=== PATIENT | male | born 1955 | race Hispanic/Latino ===

== ENCOUNTER 2017-09-17 19:34 | Emergency (ER) | payer MEDICAID ==
[2017-09-17] MEDS ORDERED: Sodium Chloride 0.9% 1,000 ML IV ONE ×2 (20:04→21:39)
--- NOTE | 2017-09-17 20:11 | C.PDOC ---
History Of Present Illness 62 year old male, whose PMHx includes Diabetes, presents to the ED for evaluation after sustaining a fall earlier today. Patient admits to taking Xanax earlier today. pt states he "took xanax". reports mild cough. pt oriente x 3, mildly somulent. - HPI Time Seen by Provider: 09/17/17 19:58 Chief Complaint (Nursing): Trauma History Per: Patient History/Exam Limitations: clinical condition Onset/Duration Of Symptoms: Hrs Injury Occurred (Timing): Just Before Arrival Additional History Per: Patient Past Medical History Reviewed: Historical Data, Nursing Documentation, Vital Signs Vital Signs: Last Vital Signs Temp 99.5 F 09/17/17 20:47 Pulse 68 09/17/17 21:45 Resp 14 09/17/17 21:45 BP 85/46 L 09/17/17 21:45 Pulse Ox 95 09/18/17 00:01 - Medical History PMH: No Chronic Diseases Surgical History: No Surg Hx Family History: States: Unknown Family Hx - Social History Hx Alcohol Use: Yes Hx Substance Use: Yes Review Of Systems Review Of Systems: ROS cannot be obtained secondary to pt's inabilty to answer questions. Physical Exam - Physical Exam Appears: Non-toxic, No Acute Distress, Other (mildly somnolent ) Skin: Normal Color, Warm, Dry Head: Atraumatic, Normacephalic Eye(s): bilateral: Normal Inspection Oral Mucosa: Moist Neck: Normal ROM, Supple Chest: Symmetrical, No Deformity, No Tenderness Cardiovascular: Rhythm Regular, No Murmur Respiratory: Normal Breath Sounds, No Rales, No Rhonchi, No Wheezing Extremity: Normal ROM, Capillary Refill (less than 2 seconds ) Neurological/Psych: Oriented x3, Normal Speech, Normal Cognition ED Course And Treatment - Laboratory Results Result Diagrams: 09/17/17 20:15 09/17/17 20:15 ECG: Interpreted By Me, Viewed By Me ECG Rhythm: Sinus Rhythm Interpretation Of ECG: Normal Sinus Rhythm at rate 82bpm. No ST/T wave changes. Rate From EC O2 Sat by Pulse Oximetry: 95 (on RA) Pulse Ox Interpretation: Normal Medical Decision Making Medical Decision Making: suspect overdose. however b/p mildly low- ivf intiiated. possible toxidrome vs sepsis. Progress: Bloodwork, urinalysis, CXR, CT Head, EKG ordered and reviewed. IV Fluids administered. no la, mild luekocytosis. cxr likely atelecatsisi, but with cough, leukoctyosis , antibiotics intiaited. b/p improved. pt now awake alert oriented. labs otheriwes urnemarkble. pt requesting immediately dc. adivsed pt that b/p is still low. pt refuses further eval, requesting immediately dc. signs AMA Disposition - Disposition Referrals: [facility] [Outside] [facility] [Outside] Disposition: AGAINST MEDICAL ADVICE Disposition Time: 01:00 Condition: UNKNOWN Additional Instructions: you are leaving against medical advice. return to any er with worsening symptoms or concerns. Prescriptions: levoFLOXacin [Levaquin] 750 mg PO DAILY #7 tab Instructions: Pneumonia, Adult (DC), Narcotic Overdose (DC), White Blood Cell Count Differential Test, Leaving Against Medical Advice, Polysubstance Abuse Forms: [facility] (Portuguese) - Clinical Impression Clinical Impression: Left against medical advice, Overdose - Scribe Statement The provider has reviewed the documentation as recorded by the Scribe (Catherine Wang) Provider Attestation: All medical record entries made by the Scribe were at my direction and personally dictated by me. I have reviewed the chart and agree that the record accurately reflects my personal performance of the history, physical exam, medical decision making, and the department course for this patient. I have also personally directed, reviewed, and agree with the discharge instructions and disposition.
[2017-09-17 20:18] LABS: BASO % 0.3 % (0.0-2.0); EOS # 0.1 K/uL (0.0-0.7); EOS % 0.6 % (0.0-4.0); HEMOGLOBIN 12.8 g/dL (12.0-18.0); LYMPH # 1.6 K/uL (1.0-4.3); LYMPH % 11.2 % (20.0-40.0); MEAN CORPUSCULAR HEMOGLOBIN 31.3 pg (27.0-31.0); MEAN CORPUSCULAR HGB CONC 33.6 g/dL (33.0-37.0); MEAN PLATELET VOLUME 9.4 fL (7.2-11.7); MONO # 1.1 K/uL (0.0-0.8); MONO % 7.9 % (0.0-10.0); NEUT # 11.5 K/uL (1.8-7.0); RBC 4.09 Mil/uL (4.40-5.90); RED CELL DISTRIBUTION WIDTH 13.7 % (11.5-14.5); WHITE BLOOD COUNT 14.3 K/uL (4.8-10.8)
[2017-09-17 20:22] LABS: URINE BILIRUBIN NEGATIVE (NEGATIVE); URINE BLOOD NEGATIVE (NEGATIVE); URINE CLARITY Clear (Clear); URINE COLOR Yellow (YELLOW); URINE GLUCOSE (UA) NORMAL (Normal); URINE LEUKOCYTE ESTERASE NEG Leu/uL (Negative); URINE PROTEIN NEGATIVE (NEGATIVE); URINE UROBILINOGEN NORMAL mg/dL (0.2-1.0)
[2017-09-17 20:26] LABS: VENOUS BLOOD GAS PCO2 50 mmHg (40-60); VENOUS BLOOD GAS PO2 38 mm/Hg (30-55); VENOUS BLOOD PH 7.26 (7.32-7.43)
[2017-09-17 20:30] LABS: PROTHROMBIN TIME 11.1 SECONDS (9.7-12.2)
[2017-09-17 20:31] LABS: ACETAMINOPHEN < 10.0 ug/mL (10.0-30.0); SALICYLATE < 1.0 mg/dL 1
[2017-09-17 20:33] LABS: ALB/GLOB RATIO 1.4 (1.0-2.1); ALBUMIN 4.2 g/dL (3.5-5.0); ALT/SGPT 12 U/L (21-72); AST/SGOT 19 U/L (17-59); BLOOD UREA NITROGEN 41 mg/dL (9-20); CALCIUM 9.3 mg/dl (8.6-10.4); GFR AFRICAN-AMERICAN 49; GFR NON-AFRICAN AMERICAN 41; LIPASE 145 U/L (23-300)
[2017-09-17 20:35] LABS: BARBITURATES, UR NEGATIVE (NEGATIVE); PHENCYCLIDINE, UR NEGATIVE (NEGATIVE)
[2017-09-17 20:37] LABS: BENZODIAZEPINES, UR POSITIVE (NEGATIVE); OPIATES, UR POSITIVE (NEGATIVE)
[2017-09-17 20:48] VITALS: TEMP 99.5
[2017-09-17] MEDS ORDERED: Moxifloxacin IV 400mg/250ml NS 400 MG/250 ML BAG IVPB ONE (21:14)
--- NOTE | 2017-09-17 22:14 | CT ---
EXAM: CT Head Without Intravenous Contrast CLINICAL HISTORY: 62 years old, male; Pain; Headache; Additional info: Fall TECHNIQUE: Axial computed tomography images of the head/brain without intravenous contrast. All CT scans at this facility use one or more dose reduction techniques, viz.: automated exposure control; ma/kV adjustment per patient size (including targeted exams where dose is matched to indication; i.e. head); or iterative reconstruction technique. Coronal and sagittal reformatted images were created and reviewed. COMPARISON: No relevant prior studies available. FINDINGS: Brain: Iipf-gb-efyzhajm atrophy. No intracranial hemorrhage. No mass. Several scattered foci of decreased attenuation within periventricular/subcortical white matter. No edema. Ventricles: No hydrocephalus. Bones/joints: No calvarial fracture. Chronic fracture deformity of RIGHT zygomatic arch. Soft tissues: See below. Vasculature: Mild atherosclerotic disease of intracranial arteries. Multiple foci of air about cavernous sinuses and left extracranial soft tissues, nonspecific but possibly iatrogenic. Clinical correlation is needed. Sinuses: Scattered minimal to mild mucosal thickening. Mastoid air cells: No mastoid effusion. No mastoid effusion. Orbits: Unremarkable as visualized. IMPRESSION: 1. No intracranial hemorrhage. 2. Nonspecific white matter changes. 3. Incidental/non-acute findings are described above.
[2017-09-17 22:18] VITALS: BP 85/46; PULSE 68; RESP 14; O2SAT 95
--- NOTE | 2017-09-18 11:25 | RAD ---
PROCEDURE: CHEST RADIOGRAPH, 1 VIEW HISTORY: Chest pain COMPARISON: None available. FINDINGS: LUNGS: Poor inspiration with low lung volumes, crowded bronchovascular markings and mild bibasilar atelectasis. Developing lower lobe infiltrates could be excluded followup radiographs. . The central pulmonary vasculature is also slightly increased which is likely also due to poor inspiration and semi-erect patient positioning PLEURA: No pneumothorax or pleural fluid seen. CARDIOVASCULAR: Normal. OSSEOUS STRUCTURES: No significant abnormalities. VISUALIZED UPPER ABDOMEN: Normal. OTHER FINDINGS: None. IMPRESSION: Poor inspiration with low lung volumes, crowded bronchovascular markings and mild bibasilar atelectasis. Developing lower lobe infiltrates could be excluded followup radiographs. . The central pulmonary vasculature is also slightly increased which is likely also due to poor inspiration and semi-erect patient positioning
--- NOTE | 2017-09-19 12:21 | CARD ---
APPROVED REPORT EKG Measurement Heart [id number] IN [id number] <Conclusion> Normal sinus rhythm Left axis deviation Abnormal ECG
== END 2017-09-17 21:45 | disposition left against medical advice (07) ==
LOC: C.ER 19:34
DX: T42.4X1A Poisoning by benzodiazepines, accidental (unintentional), initial encounter (principal)
CPT/HCPCS: 70450; 71045; 80053; 80320; 80324; 80329; 80345; 80346; 80349; 80353; 80358; 80361; 81001; 82550; 82803; 83690; 83992; 84484; 85025; 85610; 85730; 93005; 96360; 99285; J7040